=== PATIENT | female | born 1930 | race Caucasian/White ===

== ENCOUNTER 2017-12-19 20:00 | Emergency (ER) | payer OTHER, BC ==
[2017-12-19] MEDS ORDERED: SODIUM CHLORIDE 0.9% 500 ML INFUS.BAG IV ONE (20:04)
[2017-12-19] MEDS ORDERED: morphine CARPU-JECT 2 MG/1 ML DISP.SYRIN IVPUSH ONE (20:04)
--- NOTE | 2017-12-19 20:12 | PDOC ---
Attending Attestation - Resident Resident Name: Cheryl Jones - ED Attending Attestation I have performed the following: I have examined & evaluated the patient, The case was reviewed & discussed with the resident, I agree w/resident's findings & plan - HPI HPI: 12/19/17 23:07 Pt comes with a grossly deformed right hip. She is a poor historian and it is unclear how this occurred. She states that she ate soup this afternoon and all was well at that time. Later today she injured her hip. She then lay in bed and states that it - Physicial Exam PE: 12/19/17 23:12 Agree with resident exam. - Medical Decision Making 12/19/17 22:11 Labs are normal; D dimer is elevated. Pt has a proximal femur fracture at the border of her hip hardware on the right side. Sono duplex calves pending. CXR pending. Pt is being controlled with narcotics and she is receiving NSS bolus, as her oral mucosa was dry. 12/19/17 23:04 I spoke to ortho information resources director and they have no hip specialist as they lost a doctor in their group. They are not equipped to operate on a za-prosthetic fracture. As a result they are asking that I transfer the patient out. 12/19/17 23:12 I spoke to Ortho at [facility] Dr. Dhillon. He agrees that pt will be able to be managed at [facility]. Requesting ER to ER transfer. I will speak to the ER docs at [facility]. 12/19/17 23:13 CBC and UA normal. Pt has elevated BNP which reflects her pitting edema of her legs bilaterally. Pt also has sono of her legs bilaterally. <Suzanne Medina - Last Filed: 12/19/17 23:13> - Medical Decision Making 12/20/17 01:46 Vent. rate: 79 bpm MO interval: 108 ms QRS duration: 118 ms sinus rhythm with short MO wih occasional premature ventricular complexes left atrial enlargement left axis deviation right bundle branch block abnormal ECG conduction delay PBBB <Shirlene Castillo - Last Filed: 12/20/17 01:50>
--- NOTE | 2017-12-19 20:16 | PDOC ---
History of Present Illness - General Stated Complaint: HIP DISLOCATION Time Seen by Provider: 12/19/17 20:01 History Source: Patient Exam Limitations: No Limitations - History of Present Illness Initial Comments: This is an 87 YOF with h/o bilateral hip replacement (right hip about 15 years ago, left hip about 6 years ago) who p/w severely deformed right hip for the past hour and marked right leg shortening. She notes having been laying down in her bed at home (where she lives alone) about an hour and a half ago when she repositioned in bed and felt a sudden onset of 10/10 sharp right hip and pelvis pain. She called 911 and EMS arrived on scene, started a PIV, and gave her a total of 10 mg morphine with partial relief of her symptoms. The patient denies any numbness or tingling in her right foot. She is able to move the right foot. She notes having eaten small amounts of food throughout the day but no large meals, and states she has no appetite and has been feeling under the weather lately. Past History - Past Medical History Allergies/Adverse Reactions: Allergies Allergy/AdvReac Type Severity Reaction Status Date / Time No Known Allergies Allergy Verified 12/19/17 20:45 Home Medications: Ambulatory Orders Multivitamin [Daily Hoda] 1 each PO DAILY tablet 09/16/16 Vit C/Hoda AC/Lut/Copper/Znox [Preservision Lutein Softgel] 1 each PO BID capsule 09/16/16 Levothyroxine [Synthroid -] 75 mcg PO DAILY 12/19/17 Oxycodone HCl/Acetaminophen [Percocet 5-325 mg Tablet] 1 - 2 tab PO BID PRN Asthma: No Diabetes: No HTN: Yes Hypercholesterolemia: Yes Thyroid Disease: Yes - Suicide/Smoking/Psychosocial Hx Smoking Status: Yes Smoking History: Former smoker Number of Cigarettes Smoked Daily: 0 Hx Alcohol Use: No (Tej never) Drug/Substance Use Hx: No Review of Systems - Review of Systems Able to Perform ROS?: Yes Constitutional: No: Chills, Fever, Unexplained wgt Loss HEENTM: No: Nose Congestion, Throat Pain Respiratory: No: Cough, Shortness of Breath Cardiac (ROS): No: Chest Pain, Palpitations ABD/GI: No: Constipated, Diarrhea, Nausea, Vomiting : No: Burning, Dysuria Musculoskeletal: Yes: Other (right hip and pelvic pain). No: Back Pain, Neck Pain Integumentary: No: Bruising, Rash Neurological: No: Headache, Numbness, Tingling, Weakness, Dizziness Endocrine: No: Unexplained Weight Gain, Unexplained Weight Loss *Physical Exam - Physical Exam General Appearance: Yes: Nourished, Appropriately Dressed, Moderate Distress, Other (very pleasant but uncomfortable elderly female, answering questions appropriately, obvious deformity to right hip and obvious shortening of right leg) HEENT: positive: EOMI, TRAMAINE, Normal ENT Inspection, Normal Voice, Hearing Grossly Normal, Other (no cephalohematoma, no scalp laceration, no raccoon eyes , no menjivar sign, no hemotympanum, no CSF rhinorrhea/otorrhea.). negative: Scleral Icterus (R), Scleral Icterus (L), Nasal Congestion Neck: positive: Trachea midline, Supple. negative: Tender, Rigid Respiratory/Chest: positive: Lungs Clear, Normal Breath Sounds. negative: Chest Tender, Respiratory Distress, Crackles, Rhonchi, Stridor, Wheezing Cardiovascular: positive: Regular Rhythm, Regular Rate, S1, S2, Edema (BLE 2+ pitting). negative: JVD Gastrointestinal/Abdominal: positive: Normal Bowel Sounds, Soft. negative: Tender, Organomegaly, Pulsatile Mass, Guarding Musculoskeletal: negative: Decreased Range of Motion, Vertebral Tenderness Extremity: positive: Tender (right medial and lateral hip tenderness to palpation, right inferior iliac crest ttp, no obvious pelvic bone deformity, very obvious right hip dislocation laterally from the acetabulum, ROM not tested , pelvis stability not tested), Delayed Capillary Refill (capillary refill 4 seconds right foot), Swelling (bilateral calves). negative: Normal Inspection, Cyanosis, Pedal Edema Integumentary: positive: Normal Color, Dry, Warm, Other (no abrasions, skin tears, or lacerations). 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 negative: Facial Droop , Numbness, Sensory Deficit, Confused, Disoriented Heart Score/ECG Review #1 12/19/17 22:10 Sinus rhythm, rate of 79, with RBBB and secondary flipped T waves in V1-V3, left axis deviation, YNt=476 ED Treatment Course - LABORATORY CBC & Chemistry Diagram: 12/19/17 20:30 12/19/17 20:30 Medical Decision Making - Medical Decision Making Patient p/w hip deformity. Initial Vital Signs Temp Pulse Resp BP Pulse Ox 98.0 F 74 20 118/41 96 12/19/17 20:46 12/19/17 20:46 12/19/17 20:46 12/19/17 20:46 12/19/17 20:46 Exam: dry mucous membranes, shortening and rotation right leg, obvious right hip deformity, diffuse medial and lateral hip and acetabular ttp, no skin tenting, femoral pulse 2+, right foot is same temperature as left, capillary refill 4 seconds, DP pulse 1+, GCS 15, protecting airway, bilateral breath sounds, no flail chest, abdomen soft, pelvis stable, no thigh hematoma, PERRLA, moving all extremities, no cephalohematoma, no scalp laceration, no raccoon eyes , no menjivar sign, no hemotympanum, no CSF rhinorrhea/otorrhea. DDX IBNLT: hip dislocation and/or fracture, acetabular fracture, femur fracture , knee fracture/dislocation/joint injury, wwo neurovascular injury, thigh hematoma, compartment syndrome, sprain/strain, contusion, etc. W/U ordered: Hip/Pelvis/Knee XR, CBCD CMP Coags T&S TSH D-dimer UA UCx TX ordered: Cheng Morphine 2 mg IVF EKG: Sinus rhythm, rate of 79, with RBBB and secondary flipped T waves in V1-V3 , left axis deviation, FPx=531 CXR: NADP XR Rt Hip/Pelvis: XR Rt Knee: Laboratory Tests 12/19/17 12/19/17 12/19/17 20:30 20:30 20:30 WBC 7.3 RBC 4.23 Hgb 12.0 Hct 35.0 MCV 82.8 MCH 28.3 MCHC 34.2 RDW 15.2 Plt Count 179 MPV 9.1 Neutrophils % 77.6 Lymphocytes % 11.7 Monocytes % 7.2 Eosinophils % 2.4 Basophils % 1.1 PT with INR INR PTT (Actin FS) 27.7 D-Dimer Sodium 138 Potassium 3.9 Chloride 103 Carbon Dioxide 28 Anion Gap 7 L BUN 22 H Creatinine 0.8 Creat Clearance w eGFR > 60 Random Glucose 125 H Lactic Acid Calcium 8.4 L Total Bilirubin 0.5 AST 26 ALT 31 Alkaline Phosphatase 97 B-Natriuretic Peptide Total Protein 6.6 Albumin 3.7 TSH Urine Color Urine Appearance Urine pH Ur Specific [place] Urine Protein Urine Glucose (UA) Urine Ketones Urine Blood Urine Nitrite Urine Bilirubin Urine Urobilinogen Ur Leukocyte Esterase Blood Type Antibody Screen 12/19/17 12/19/17 12/19/17 20:30 20:30 20:30 WBC RBC Hgb Hct MCV MCH MCHC RDW Plt Count MPV Neutrophils % Lymphocytes % Monocytes % Eosinophils % Basophils % PT with INR 12.40 INR 1.10 PTT (Actin FS) D-Dimer Sodium Potassium Chloride Carbon Dioxide Anion Gap BUN Creatinine Creat Clearance w eGFR Random Glucose Lactic Acid Calcium Total Bilirubin AST ALT Alkaline Phosphatase B-Natriuretic Peptide 1231.83 H Total Protein Albumin TSH Urine Color Urine Appearance Urine pH Ur Specific [place] Urine Protein Urine Glucose (UA) Urine Ketones Urine Blood Urine Nitrite Urine Bilirubin Urine Urobilinogen Ur Leukocyte Esterase Blood Type O POSITIVE Antibody Screen Negative 12/19/17 12/19/17 12/19/17 20:30 20:30 20:30 WBC RBC Hgb Hct MCV MCH MCHC RDW Plt Count MPV Neutrophils % Lymphocytes % Monocytes % Eosinophils % Basophils % PT with INR INR PTT (Actin FS) D-Dimer 1073 H Sodium Potassium Chloride Carbon Dioxide Anion Gap BUN Creatinine Creat Clearance w eGFR Random Glucose Lactic Acid 1.0 Calcium Total Bilirubin AST ALT Alkaline Phosphatase B-Natriuretic Peptide Total Protein Albumin TSH 0.83 Urine Color Urine Appearance Urine pH Ur Specific [place] Urine Protein Urine Glucose (UA) Urine Ketones Urine Blood Urine Nitrite Urine Bilirubin Urine Urobilinogen Ur Leukocyte Esterase Blood Type Antibody Screen 12/19/17 22:10 WBC RBC Hgb Hct MCV MCH MCHC RDW Plt Count MPV Neutrophils % Lymphocytes % Monocytes % Eosinophils % Basophils % PT with INR INR PTT (Actin FS) D-Dimer Sodium Potassium Chloride Carbon Dioxide Anion Gap BUN Creatinine Creat Clearance w eGFR Random Glucose Lactic Acid Calcium Total Bilirubin AST ALT Alkaline Phosphatase B-Natriuretic Peptide Total Protein Albumin TSH Urine Color Straw Urine Appearance Clear Urine pH 7.0 Ur Specific [place] 1.006 Urine Protein Negative Urine Glucose (UA) Negative Urine Ketones Negative Urine Blood Negative Urine Nitrite Negative Urine Bilirubin Negative Urine Urobilinogen Negative Ur Leukocyte Esterase Negative Blood Type Antibody Screen Repeat VS: Reassessment: Patient remains very painful, still has ttp, Fentanyl 25 mg ordered. 12/19/17 21:45 Page sent to patient's PCP Dr. Noel who admits to himself currently. 12/19/17 22:[address] 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 Patient to be admitted to hospitalist at this time. Microblog sent to [facility] (admitting for patients PCP). Spoke with [facility]; in agreement patient is appropriate for Inpatient Med/Surg. Decision to Admit order placed to [facility] covering attending. Page sent to orthopedist wholesale parts salesperson. Spoke with orthopedist who agrees with plan for admission. Consult order placed to Ortho. *DC/Admit/Observation/Transfer Diagnosis at time of Disposition: D-dimer, elevated Femur fracture, right Qualifiers: Encounter type: initial encounter Femur location: unspecified portion of femur Fracture type: closed Fracture morphology: unspecified fracture morphology Qualified Code(s): S72.91XA - Unspecified fracture of right femur, initial encounter for closed fracture CHF (congestive heart failure) Qualifiers: Heart failure type: unspecified Heart failure chronicity: unspecified Qualified Code(s): I50.9 - Heart failure, unspecified - Discharge Dispostion Condition at time of disposition: Guarded - Referrals - Patient Instructions - Post Discharge Activity
[2017-12-19 20:40] LABS: BASO % 1.1 % (0-2.0); EOS % 2.4 % (0-4.5); LYMPH % 11.7 % (8-40); MCH 28.3 pg (25.7-33.7); MCHC 34.2 g/dl (32.0-36.0); MEAN CELL VOLUME 82.8 fl (80-96); MEAN PLT VOLUME 9.1 fl (7.5-11.1); MONO % 7.2 % (3.8-10.2); NEUT % 77.6 % (42.8-82.8); PLATELET COUNT 179 K/MM3 (134-434); RBC 4.23 M/mm3 (3.60-5.2); RDW 15.2 % (11.6-15.6); WHITE BLOOD COUNT 7.3 K/mm3 (4.0-10.0)
[2017-12-19 20:49] VITALS: BMI 18.7
[2017-12-19] MEDS ORDERED: morphine SULFATE 4 MG/ML VIAL ONE (20:51)
[2017-12-19 21:00] LABS: INR 1.1 (0.82-1.09); PROTHROMBIN TIME (PATIENT) 12.4 SEC (9.7-13.0)
[2017-12-19 21:03] LABS: ALBUMIN 3.7 g/dl (3.4-5.0); ALK PHOS 97 U/L (45-117); ANION GAP 7 (8-16); BILIRUBIN,TOTAL 0.5 mg/dL (0.2-1.0); BLOOD UREA NITROGEN 22 mg/dL (7-18); CALCIUM 8.4 mg/dL (8.5-10.1); CHLORIDE 103 mmol/L (98-107); CO2 28 mmol/L (21-32); CREATININE 0.8 mg/dL (0.55-1.02); GLUCOSE,RANDOM 125 mg/dL (74-106); POTASSIUM 3.9 mmol/L (3.5-5.1); SGOT/AST 26 U/L (15-37); SGPT/ALT 31 U/L (12-78); SODIUM 138 mmol/L (136-145); TOT PROT 6.6 g/dl (6.4-8.2)
[2017-12-19 22:23] LABS: URINE APPEARANCE CLEAR; URINE BILIRUBIN NEGATIVE (<2.0 mg/dL); URINE COLOR STRAW; URINE GLUCOSE (UA) NEGATIVE (NEGATIVE); URINE KETONE NEGATIVE (NEGATIVE); URINE LEUK ESTERASE NEGATIVE (NEGATIVE); URINE NITRITE NEGATIVE (NEGATIVE); URINE PROTEIN NEGATIVE (NEGATIVE); URINE UROBILINOGEN NEGATIVE mg/dL (0.2-1.0)
[2017-12-19] MEDS ORDERED: morphine SULFATE 4 MG/ML VIAL IVPUSH PRN (22:40)
[2017-12-19] MEDS ORDERED: ONDANSETRON 4 MG/2 ML VIAL IVPB ONE (22:46)
[2017-12-19] MEDS ORDERED: ONDANSETRON 4 MG/2 ML VIAL ONE (22:58)
[2017-12-19] MEDS ORDERED: ACETAMINOPHEN 1000 MG/100 ML VIAL (NON FORMULARY) IVPB ONE (23:03)
[2017-12-19] MEDS ORDERED: ACETAMINOPHEN INJECTION 100 ML IVPB ONE (23:09)
[2017-12-19 23:57] VITALS: BP 133/58; PULSE 83
[2017-12-19 23:59] VITALS: TEMP 97.9
[2017-12-20] MEDS ORDERED: morphine CARPU-JECT 2 MG/1 ML DISP.SYRIN IVPUSH ONE (00:18)
[2017-12-20] MEDS ORDERED: morphine SULFATE 4 MG/ML VIAL ONE (00:20)
[2017-12-20] MEDS ORDERED: HEPARIN NA (PORCINE) 5,000 UNITS/ML 1ML VIAL SQ SCH (10:00)
--- NOTE | 2017-12-20 10:53 | EKG ---
Test Reason : Blood Pressure : / mmHG Vent. Rate : 079 BPM Atrial Rate : 079 BPM P-R Int : 108 ms QRS Dur : 118 ms QT Int : 414 ms P-R-T Axes : 076 -64 049 degrees QTc Int : 474 ms SINUS RHYTHM WITH SHORT AR WITH OCCASIONAL PREMATURE VENTRICULAR COMPLEXES LEFT ATRIAL ENLARGEMENT LEFT AXIS DEVIATION RIGHT BUNDLE BRANCH BLOCK LEFT ANTERIOR FASCICULAR BLOCK ABNORMAL ECG WHEN COMPARED WITH ECG OF 25-SEP-2005 09:30, PREMATURE VENTRICULAR COMPLEXES ARE NOW PRESENT Confirmed by BILLY ORDONEZ MD ([id number]) on 12/20/2017 10:53:21 AM Referred By: Confirmed By:BILLY ORDONEZ MD
== END 2017-12-20 00:34 | disposition short-term general hospital (02) ==
LOC: JER 20:00
PROC: 3E033NZ Introduction of Analgesics, Hypnotics, Sedatives into Peripheral Vein, Percutaneous Approach (ICD-10-PCS; principal; 2017-12-19)
PROC: 3E033GC Introduction of Other Therapeutic Substance into Peripheral Vein, Percutaneous Approach (ICD-10-PCS; 2017-12-19)
DX: S72.91XA Unspecified fracture of right femur, initial encounter for closed fracture (principal); Z96.643 Presence of artificial hip joint, bilateral; I50.9 Heart failure, unspecified; I10 Essential (primary) hypertension; E78.00 Pure hypercholesterolemia, unspecified; E03.9 Hypothyroidism, unspecified
CPT/HCPCS: 36415; 71045-TC-FY; 73523-TC-FY; 73552-TC-RT-FY; 73560-TC-RT-FY; 80053; 81003; 83605; 83880; 84443; 85025; 85379; 85610; 85730; 86850; 86900; 86901; 87086; 93005; 93010; 93970-TC; 96374; 96375; 96376; 99285-25; J0131

== ENCOUNTER 2021-02-22 08:18 | Emergency (ER) | payer OTHER ==
[2021-02-22] MEDS ORDERED: LIDOCAINE 5% TOPICAL PATCH TP ONE (08:38)
[2021-02-22] MEDS ORDERED: ACETAMINOPHEN 500 MG TABLET (FP) PO ONE (08:38)
[2021-02-22 08:44] VITALS: BP 118/71; PULSE 77; TEMP 97.3; BMI 19.7
[2021-02-22] MEDS ORDERED: ACETAMINOPHEN 500 MG TABLET (FP) ONE (08:53)
[2021-02-22] MEDS ORDERED: LIDOCAINE 5% TOPICAL PATCH ONE (08:53)
[2021-02-22] MEDS ORDERED: LIDOCAINE PATCH REMOVAL MC SCH (22:00)
== END 2021-02-22 13:00 | disposition home or self-care (01) ==
LOC: SUPCPDRO 08:18 → FER 08:18
DX: S09.90XA Unspecified injury of head, initial encounter (principal); S72.91XA Unspecified fracture of right femur, initial encounter for closed fracture
CPT/HCPCS: 70450-TC; 72070-TC-FY; 72100-TC-FY; 72125-TC; 73502-TC-RT-FY; 73523-TC-FY; 73560-TC-LT-FY; 73560-TC-RT-FY; 99285-25